=== PATIENT | female | born 1945 | race Hispanic/Latino ===

== ENCOUNTER 2017-06-30 19:06 | Observation (INO) | payer MEDICARE, OTHER ==
[2017-06-30 19:06] VITALS: BMI 32.8
--- NOTE | 2017-06-30 19:54 | ED PDOC ---
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 Pain is R ian-sternal. Consistent for the last 2 days. Sharp in nature. Localized. Associated with SOB. Rated 7/10. No history of MD or stroke. Aggravated with movement and alleviated slightly with rest Daughter was present. She shares that today, she was cutting a cucumber and accidentally punctured her middle finger. There was slight bleeding. However, she still experiences pain with some limitation in extension and flexion. PCP: Dr. Mark Polanco FamHx: No hx of CAD or DM SurgHx: none Soc: Denies smoking, alcohol, illicit drugs NKDA - Risk Factors TAD Risk Factors: Pos: Hypertension Past Medical History Vital Signs: Last Vital Signs Temp Pulse 80 06/30/17 19:25 Resp 20 06/30/17 19:25 BP 141/73 06/30/17 19:25 Pulse Ox 99 06/30/17 20:44 - Medical History PMH: Anxiety, Arthritis, Asthma, HTN, Hyperlipidemia, Osteoporosis Denies: Chronic Kidney Disease - Family History Family History: States: No Known Family Hx - Living Arrangements Living Arrangements: With Family - Immunization History Hx Tetanus Toxoid Vaccination: No Hx Influenza Vaccination: No Hx Pneumococcal Vaccination: No - Home Medications Home Medications: Ambulatory Orders Medication Instructions Recorded Amlodipine Besylate 2.5 mg PO DAILY 04/02/15 Triamterene/Hydrochlorothiazid 1 cap PO DAILY 04/02/15 [Triamterene-Hydrochlorothiazide 25 mg-37.5 mg] Albuterol HFA [Ventolin HFA 90 1 puff IH BID PRN 11/02/16 mcg/actuation (8 g)] Alendronate Sodium [Binosto] 70 mg PO QWK 11/02/16 Budesonide/Formoterol Fumarate 1 aer IH BID 11/02/16 [Symbicort] Calcium Carbonate [Caltrate 600] 600 mg PO DAILY 11/02/16 Diclofenac Sodium [Voltaren] 100 gm TP BID PRN 11/02/16 Lactulose 10 gm PO DAILY PRN 11/02/16 Multivit,Iron,Min 5/Folic Acid 1 tab PO DAILY 11/02/16 [Strovite Forte] Naproxen [Naprosyn] 500 mg PO DAILY PRN 11/02/16 [place]-3 Fatty Acids/Fish Oil [Fish 1,000 mg PO BID 11/02/16 Oil 1,000 mg Capsule] Omeprazole 40 mg PO DAILY 11/02/16 - Allergies Allergies/Adverse Reactions: Allergies Allergy/AdvReac Type Severity Reaction Status Date / Time No Known Allergies Allergy Verified 04/02/15 07:39 DAVE Risk Score for UA/NSTEMI - DAVE Risk Score Age > 64: YES 3 or more CAD Risk Factors: NO Known CAD (Stenosis greater than 50%): NO Aspirin use in past 7 days: NO Severe Angina: YES EKG ST changes greater than 0.5mm: NO Positive Cardiac Marker: NO DAVE Score: 2 Risk %: 8% Curb-65 Severity Score - CURB-65 Severity Score Respiratory Rate greater than/equal to 30: No Systolic BP <90 or Diastolic BP less than/equal 60mmHg: No Age >64: Yes Curb-65 Score: 1 Percentage 30-day mortality: 2.7% Review of Systems Cardiovascular: Positive for: Chest Pain (R sternal) Respiratory: Positive for: Shortness of Breath Neurological: Negative for: Altered Mental Status Psych: Positive for: Anxiety Physical Exam - Reviewed Vital Signs Reviewed: Yes - Physical Exam Appears: Positive for: Uncomfortable Skin: Positive for: Warm, Dry Eye Exam: Positive for: Normal appearance, EOMI. Negative for: Nystagmus Cardiovascular/Chest: Positive for: Regular Rate, Rhythm, Other (R sternal tenderness upon palpation) Respiratory: Positive for: Normal Breath Sounds Gastrointestinal/Abdominal: Positive for: Normal Exam, Bowel Sounds, Soft Extremity: Positive for: Capillary Refill (<2 sec), Swelling (L middle digit), Other (L middle digit with healing puncture wound. No surrounding erythema. limited ROM 2/2 pain. No ulcerations or purulent discharge.) Neurologic/Psych: Positive for: Alert, Oriented - Laboratory Results Result Diagrams: 06/30/17 19:57 06/30/17 19:57 - ECG O2 Sat by Pulse Oximetry: 99 - Progress ED Course And Treament: Troponin negative x1. Observation overnight for serial troponin. Disposition - Clinical Impression Clinical Impression: Chest pain - Patient ED Disposition Is Patient to be Admitted: Yes - Disposition Disposition Time: 20:45 Condition: FAIR Forms: [employer] (Mongolian)
[2017-06-30 20:12] LABS: BASO # 0.1 K/uL (0.0-0.2); BASO % 0.5 % (0.0-2.0); EOS # 0.4 K/uL (0.0-0.7); EOS % 3.9 % (0.0-4.0); HEMATOCRIT 36.1 % (34.0-47.0); LYMPH # 2.3 K/uL (1.0-4.3); MEAN CELL VOLUME 86.5 fl (81.0-99.0); MEAN CORPUSCULAR HEMOGLOBIN 28.6 pg (27.0-31.0); MEAN PLATELET VOLUME 8.5 fl (7.2-11.7); NEUT # 7.7 K/uL (1.8-7.0); NEUT % 66.6 % (50.0-75.0); NRBC % 0.1 % (0.0-0.0); RED CELL DISTRIBUTION WIDTH 14.1 % (11.5-14.5); WHITE BLOOD COUNT 11.6 K/uL (4.8-10.8)
[2017-06-30 20:15] LABS: BLOOD UREA NITROGEN 21 mg/dl (7-17); CALCIUM 9.5 mg/dL (8.4-10.2); CARBON DIOXIDE 29 mmol/L (22-30); CHLORIDE 105 mmol/L (98-107); GFR AFRICAN-AMERICAN > 60; GLUCOSE,RANDOM 102 mg/dL (65-105); POTASSIUM 3.5 MMOL/L (3.6-5.0); SODIUM 141 mmol/l (132-148)
[2017-06-30 21:07] LABS: PARTIAL THROMBOPLASTIN TIME 33.2 Seconds (25.6-37.1)
[2017-06-30] MEDS ORDERED: Oxycodone/Acetaminophen 5/325 mg Tab PO PRN (21:55)
[2017-06-30] MEDS ORDERED: Aspirin 325 mg EC Tablets PO ONE (22:32)
[2017-07-01 00:24] VITALS: RESP 18
[2017-07-01 08:15] VITALS: BP 119/68; PULSE 65; TEMP 98.2; O2SAT 96
[2017-07-01] MEDS ORDERED: Pantoprazole 40 mg EC Tab PO SCH (09:00)
[2017-07-01] MEDS ORDERED: Enoxaparin 40 mg Syringe SC SCH (09:00)
--- NOTE | 2017-07-01 09:51 | CARD ---
APPROVED REPORT EKG Measurement Heart [id number] <Conclusion> Normal sinus rhythm Moderate voltage criteria for LVH, may be normal variant Inferior infarct, age undetermined Abnormal ECG
--- NOTE | 2017-07-01 09:52 | RAD ---
PROCEDURE: CHEST RADIOGRAPH, 1 VIEW HISTORY: chest pain COMPARISON: None available. FINDINGS: LUNGS: Clear. PLEURA: No pneumothorax or pleural fluid seen. CARDIOVASCULAR: Normal. OSSEOUS STRUCTURES: Degenerative changes. VISUALIZED UPPER ABDOMEN: Normal. OTHER FINDINGS: None. IMPRESSION: No active disease.
--- NOTE | 2017-07-01 10:03 | CP.PCM.DIS ---
Provider - Provider Date of Admission: 06/30/17 21:41 Attending physician: Mariposa Reid MD Time Spent in preparation of Discharge (in minutes): 30 Diagnosis - Discharge Diagnosis (1) Chest pain Status: Acute Hospital Course - Lab Results Lab Results: Most Recent Lab Values WBC 11.6 K/uL (4.8-10.8) H 06/30/17 19:57 RBC 4.17 Mil/uL (3.80-5.20) 06/30/17 19:57 Hgb 11.9 g/dL (12.0-16.0) L 06/30/17 19:57 Hct 36.1 % (34.0-47.0) 06/30/17 19:57 MCV 86.5 fl (81.0-99.0) 06/30/17 19:57 MCH 28.6 pg (27.0-31.0) 06/30/17 19:57 MCHC 33.0 g/dL (33.0-37.0) 06/30/17 19:57 RDW 14.1 % (11.5-14.5) 06/30/17 19:57 Plt Count 253 K/uL (130-400) 06/30/17 19:57 MPV 8.5 fl (7.2-11.7) 06/30/17 19:57 Neut % (Auto) 66.6 % (50.0-75.0) 06/30/17 19:57 Lymph % (Auto) 20.0 % (20.0-40.0) 06/30/17 19:57 [place] % (Auto) 9.0 % (0.0-10.0) 06/30/17 19:57 Eos % (Auto) 3.9 % (0.0-4.0) 06/30/17 19:57 Baso % (Auto) 0.5 % (0.0-2.0) 06/30/17 19:57 Neut # 7.7 K/uL (1.8-7.0) H 06/30/17 19:57 Lymph # 2.3 K/uL (1.0-4.3) 06/30/17 19:57 [place] # 1.0 K/uL (0.0-0.8) H 06/30/17 19:57 Eos # 0.4 K/uL (0.0-0.7) 06/30/17 19:57 Baso # 0.1 K/uL (0.0-0.2) 06/30/17 19:57 PT 10.4 Seconds (9.8-13.1) 06/30/17 19:57 INR 0.9 (0.9-1.2) 06/30/17 19:57 APTT 33.2 Seconds (25.6-37.1) 06/30/17 19:57 Sodium 141 mmol/l (132-148) 06/30/17 19:57 Potassium 3.5 MMOL/L (3.6-5.0) L 06/30/17 19:57 Chloride 105 mmol/L (98-107) 06/30/17 19:57 Carbon Dioxide 29 mmol/L (22-30) 06/30/17 19:57 Anion Gap 11 (10-20) 06/30/17 19:57 BUN 21 mg/dl (7-17) H 06/30/17 19:57 Creatinine 0.7 mg/dl (0.7-1.2) 06/30/17 19:57 Est GFR ( Amer) > 60 06/30/17 19:57 Est GFR (Non-Af Amer) > 60 06/30/17 19:57 Random Glucose 102 mg/dL (65-105) 06/30/17 19:57 Calcium 9.5 mg/dL (8.4-10.2) 06/30/17 19:57 Troponin I < 0.0120 ng/mL (0.00-0.120) 07/01/17 06:16 - Hospital Course Hospital Course: 71 YEAR OLD FEMALE WITH PMH HTN WAS ADMITTED FOR CHEST PAIN. CARDIAC ENZYMES WERE TRENDED, NEGATIVE X2. EKG NO ACUTE ISCHEMIA OR INFARCT. CARDIOLOGY WAS CONSULTED THIS MORNING. THIS MORNING PATIENT STATED SHE NO LONGER WISHES TO STAY. RISKS OF LEAVING AMA, AND BENEFITS OF STAYING EXPLAINED. PATIENT DECIDED TO AMA. ABX GIVEN FOR FINGER. Discharge Exam - Head Exam Additional comments: DECLINED EXAM Discharge Plan - Follow Up Plan Condition: FAIR Disposition: AGAINST MEDICAL ADVICE Additional Instructions: return to ER if condition returns or worsens. follow up with PCP and CARDIOLOGY RENETTA
[2017-07-01 13:47] LABS: HEMATOCRIT 34.5 % (34.0-47.0); MEAN CELL VOLUME 87.3 fl (81.0-99.0); MEAN CORPUSCULAR HEMOGLOBIN 28.2 pg (27.0-31.0); MEAN CORPUSCULAR HGB CONC 32.4 g/dL (33.0-37.0); WHITE BLOOD COUNT 8.4 K/uL (4.8-10.8)
[2017-07-01 14:36] LABS: THYROID STIMULATING HORMONE 2.08 mIU/ML (0.46-4.68)
[2017-07-01 14:39] LABS: ALB/GLOB RATIO 1.1 (1.0-2.1); ALKALINE PHOSPHATASE 83 U/L (38-126); ALT/SGPT 25 U/L (9-52); AST/SGOT 23 U/L (14-36); BILIRUBIN,TOTAL 0.4 mg/dl (0.2-1.3); BLOOD UREA NITROGEN 15 mg/dl (7-17); CALCIUM 9.1 mg/dL (8.4-10.2); CARBON DIOXIDE 27 mmol/L (22-30); CHLORIDE 107 mmol/L (98-107); GFR AFRICAN-AMERICAN > 60; GLUCOSE,RANDOM 76 mg/dL (65-105); POTASSIUM 3.7 MMOL/L (3.6-5.0); SODIUM 142 mmol/l (132-148); TOTAL PROTEIN 6.5 G/DL (6.3-8.2)
== END 2017-07-01 11:00 | disposition home or self-care (01) ==
LOC: H.ER 19:06 → H.ERHOLD 21:41 → H.TEL 23:52
PROVIDERS: ADMIT Internal Medicine Medical Oncology; ATTEND Internal Medicine Medical Oncology
DX: R07.89 Other chest pain (principal); E78.5 Hyperlipidemia, unspecified; I10 Essential (primary) hypertension; J45.909 Unspecified asthma, uncomplicated; M81.0 Age-related osteoporosis without current pathological fracture; Z79.899 Other long term (current) drug therapy
CPT/HCPCS: 36415; 71010; 80048; 80053; 84436; 84443; 84484; 85025; 85027; 85610; 85730; 93005; 99285; G0378

== ENCOUNTER 2018-03-13 07:51 | Emergency (ER) | payer MEDICARE, OTHER ==
[2018-03-13 07:55] VITALS: BMI 42.2
[2018-03-13 07:56] VITALS: RESP 18; O2SAT 98
--- NOTE | 2018-03-13 08:51 | ED PDOC ---
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 Patient states she was seen by her PMD Dr. Varela as well as an ENT and was informed to come to the ER for further evaluation. Patient currently complains of a mild headache and states the dizziness worsens when she stands up from a sitting position. She denies any weakness, numbness, photophobia, or head injury. She also denies any fever, chills, nausea, vomiting, diarrhea, chest pain, shortness of breath or abdominal pain. Patient offers no other complaints. PMD: Dr. Varela Past Medical History Reviewed: Historical Data, Nursing Documentation, Vital Signs Vital Signs: Last Vital Signs Temp 97.6 F 03/13/18 12:54 Pulse 70 03/13/18 12:54 Resp 18 03/13/18 12:54 BP 132/78 03/13/18 12:54 Pulse Ox 98 03/13/18 14:16 - Medical History PMH: Anxiety, Arthritis, Asthma, HTN, Hypercholesterolemia, Hyperlipidemia, Osteoporosis Denies: HIV, Chronic Kidney Disease - Surgical History Surgical History: No Surg Hx - Family History Family History: States: No Known Family Hx - Social History Current smoker - smoking cessation education provided: No Alcohol: None Drugs: Denies - Immunization History Hx Tetanus Toxoid Vaccination: No Hx Influenza Vaccination: No Hx Pneumococcal Vaccination: No - Home Medications Home Medications: Ambulatory Orders Medication Instructions Recorded Albuterol HFA [Ventolin HFA 90 1 puff IH DAILY 01/09/18 mcg/actuation (8 g)] Alendronate [Fosamax] 70 mg PO QWK 01/09/18 Ammonium Lactate 12% [Lac-Hydrin 1 appl TP DAILY 01/09/18 12% Cream (140 g)] Atorvastatin [Lipitor] 10 mg PO DAILY 01/09/18 Betamethasone Dip 0.05% [Diprolene] 1 ml TP DAILY 01/09/18 Escitalopram [Lexapro] 5 mg PO DAILY 01/09/18 Icosapent Ethyl [Vascepa] 1 gm PO DAILY 01/09/18 Levocetirizine Dihydrochloride 5 mg PO DAILY 01/09/18 [Levocetirizine Dihydrochloride] Meclizine HCl 12.5 mg PO DAILY 01/09/18 Metoprolol Succinate 25 mg PO DAILY 01/09/18 Olopatadine HCl 2.5 ml OP DAILY 01/09/18 Ropinirole HCl 0.25 mg PO DAILY 01/09/18 amLODIPine [Norvasc] 2.5 mg PO DAILY 01/09/18 Meclizine [Antivert] 12.5 mg PO Q6H PRN #6 tab 03/13/18 - Allergies Allergies/Adverse Reactions: Allergies Allergy/AdvReac Type Severity Reaction Status Date / Time No Known Allergies Allergy Verified 03/13/18 08:09 Review of Systems ROS Statement: Except As Marked, All Systems Reviewed And Found Negative Constitutional: Negative for: Fever, Chills Eyes: Negative for: Vision Change Cardiovascular: Negative for: Chest Pain Respiratory: Negative for: Shortness of Breath Gastrointestinal: Negative for: Nausea, Vomiting, Abdominal Pain Neurological: Positive for: Headache, Dizziness. Negative for: Weakness, Numbness Physical Exam - Reviewed Nursing Documentation Reviewed: Yes Vital Signs Reviewed: Yes - Physical Exam Appears: Positive for: Non-toxic, No Acute Distress Head Exam: Positive for: ATRAUMATIC, NORMAL INSPECTION, NORMOCEPHALIC Skin: Positive for: Normal Color, Warm, DRY Eye Exam: Positive for: Normal appearance, EOMI, PERRL. Negative for: Nystagmus ENT: Positive for: Normal ENT Inspection Neck: Positive for: Normal, Painless ROM, Supple Cardiovascular/Chest: Positive for: Regular Rate, Rhythm Respiratory: Positive for: CNT, Normal Breath Sounds Gastrointestinal/Abdominal: Positive for: Normal Exam, Soft Back: Positive for: Normal Inspection Extremity: Positive for: Normal ROM. 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 Negative for: Motor/Sensory Deficits, Aphasia, Facial Droop - Laboratory Results Result Diagrams: 03/13/18 08:54 03/13/18 08:54 - ECG O2 Sat by Pulse Oximetry: 98 (RA) Pulse Ox Interpretation: Normal Medical Decision Making Medical Decision Making: Impression: Dizziness rule out intracranial process Plan: * Labs * MRI Brain w/ and w/o contrast Time: 1100 MRI Brain w/ and w/o contrast FINDINGS: HEMORRHAGE: None DWI: No evidence of an acute or early subacute infarction. BRAIN PARENCHYMA: No mass,mass effect or edema. There is generalized cerebral atrophy present. There are multiple bilateral left side greater than right side periventricular and deep white matter and subcortical FLAIR hyperintensities nonenhancing present. These hyperintensities are nonspecific -however Lyme's disease, demyelinization. Gliosis and vasculitides noninflammatory are also considerations but believed less likely. . ENHANCEMENT: No abnormal intracranial enhancement. VENTRICLES: Unremarkable. No hydrocephalus. CRANIUM: Unremarkable. ORBITS: Grossly unremarkable. PARANASAL SINUSES/MASTOIDS: Clear VASCULAR SYSTEM: Skull base flow voids intact. OTHER FINDINGS: None . IMPRESSION: No hemorrhage or mass effect. Bilateral nonspecific white matter changes as referenced above more numerous on the left side in the right side. In this age group, microvascular ischemic disease is believe most likely. No acute infarcts seen. Time: [address] Varela who was made aware of MRI results. He recommends giving patient a dose of Meclizine and to be discharged home with follow up with him tomorrow. pt feels well, stable gait, alert and patent airway. relayed plan to pt. Scribe Attestation: Documented by Minoo Bacon, acting as a scribe for Micaela Weber MD. Provider Scribe Attestation: All medical record entries made by the Scribe were at my direction and personally dictated by me. I have reviewed the chart and agree that the record accurately reflects my personal performance of the history, physical exam, medical decision making, and the department course for this patient. I have also personally directed, reviewed, and agree with the discharge instructions and disposition. Disposition - Clinical Impression Clinical Impression: Dizziness - Patient ED Disposition Is Patient to be Admitted: No Counseled Patient/Family Regarding: Studies Performed, Diagnosis, Need For Followup - Disposition Disposition: Routine/Home Disposition Time: 12:30 Condition: IMPROVED Additional Instructions: follow up with dr varela tomorrow for reevaluation return to the ED with any worsening or concerning symptoms Prescriptions: Meclizine [Antivert] 12.5 mg PO Q6H PRN #6 tab PRN Reason: Dizziness Instructions: Vertigo (a Type of Dizziness) (DC) Forms: [employer] (Czech)
[2018-03-13 08:59] LABS: BASO # 0.1 K/uL (0.0-0.2); BASO % 0.9 % (0.0-2.0); EOS # 0.4 K/uL (0.0-0.7); EOS % 4.7 % (0.0-4.0); HEMOGLOBIN 12.1 g/dL (12.0-16.0); LYMPH # 1.6 K/uL (1.0-4.3); LYMPH % 19.4 % (20.0-40.0); MEAN CORPUSCULAR HGB CONC 33.7 g/dL (33.0-37.0); MEAN PLATELET VOLUME 8.7 fl (7.2-11.7); MONO # 0.8 K/uL (0.0-0.8); MONO % 9.5 % (0.0-10.0); NEUT # 5.2 K/uL (1.8-7.0); NEUT % 65.5 % (50.0-75.0); NRBC % 0.5 % (0.0-0.0); RBC 4.15 Mil/uL (3.80-5.20); RED CELL DISTRIBUTION WIDTH 14.3 % (11.5-14.5)
[2018-03-13 09:06] LABS: ALB/GLOB RATIO 1.1 (1.0-2.1); ALBUMIN 3.9 g/dL (3.5-5.0); ALT/SGPT 20 U/L (9-52); AST/SGOT 27 U/L (14-36); BLOOD UREA NITROGEN 27 mg/dl (7-17); CALCIUM 8.6 mg/dL (8.4-10.2); GFR NON-AFRICAN AMERICAN > 60
[2018-03-13] MEDS ORDERED: Gadodiamide 287 MG/ML VIAL (15ML) IV ONE (09:19)
--- NOTE | 2018-03-13 11:00 | MRI ---
Date of service: 03/13/2018 PROCEDURE: MRI BRAIN WITH AND WITHOUT CONTRAST HISTORY: dizziness COMPARISON: None available. TECHNIQUE: Multiplanar, multisequence MR images of the brain were obtained with and without intravenous contrast enhancement.20 cc of Omniscan was injected intravenously. FINDINGS: HEMORRHAGE: None DWI: No evidence of an acute or early subacute infarction. BRAIN PARENCHYMA: No mass,mass effect or edema. There is generalized cerebral atrophy present. There are multiple bilateral left side greater than right side periventricular and deep white matter and subcortical FLAIR hyperintensities nonenhancing present. These hyperintensities are nonspecific -however Lyme's disease, demyelinization. Gliosis and vasculitides noninflammatory are also considerations but believed less likely. . ENHANCEMENT: No abnormal intracranial enhancement. VENTRICLES: Unremarkable. No hydrocephalus. CRANIUM: Unremarkable. ORBITS: Grossly unremarkable. PARANASAL SINUSES/MASTOIDS: Clear VASCULAR SYSTEM: Skull base flow voids intact. OTHER FINDINGS: None . IMPRESSION: No hemorrhage or mass effect. Bilateral nonspecific white matter changes as referenced above more numerous on the left side in the right side. In this age group, microvascular ischemic disease is believe most likely. No acute infarcts seen.
[2018-03-13 12:55] VITALS: BP 132/78; PULSE 70; TEMP 97.6
== END 2018-03-13 12:49 | disposition home or self-care (01) ==
LOC: H.ER 07:51
DX: R42 Dizziness and giddiness (principal); E78.00 Pure hypercholesterolemia, unspecified; F41.9 Anxiety disorder, unspecified; I10 Essential (primary) hypertension; M81.0 Age-related osteoporosis without current pathological fracture
CPT/HCPCS: 70553; 80053; 82948; 85025; 99283; A9579

== ENCOUNTER 2018-07-28 16:52 | Inpatient (IN) | payer MEDICARE, OTHER ==
[2018-07-28 16:52] VITALS: BMI 42.2
[2018-07-28 18:08] LABS: BASO % 0.4 % (0.0-2.0); EOS # 0.3 K/uL (0.0-0.7); EOS % 2.6 % (0.0-4.0); HEMOGLOBIN 13.4 g/dL (12.0-16.0); LYMPH # 1.9 K/uL (1.0-4.3); LYMPH % 15.5 % (20.0-40.0); MEAN CELL VOLUME 85.7 fl (81.0-99.0); MEAN CORPUSCULAR HEMOGLOBIN 28.1 pg (27.0-31.0); MEAN CORPUSCULAR HGB CONC 32.7 g/dL (33.0-37.0); MEAN PLATELET VOLUME 9.1 fl (7.2-11.7); MONO % 8.4 % (0.0-10.0); NEUT # 8.9 K/uL (1.8-7.0); NEUT % 73.1 % (50.0-75.0); RBC 4.79 Mil/uL (3.80-5.20); WHITE BLOOD COUNT 12.1 K/uL (4.8-10.8)
[2018-07-28 18:18] LABS: ALBUMIN 4.4 g/dL (3.5-5.0); ALT/SGPT 25 U/L (9-52); AST/SGOT 38 U/L (14-36); BLOOD UREA NITROGEN 22 mg/dl (7-17); CALCIUM 9.7 mg/dL (8.4-10.2); GFR NON-AFRICAN AMERICAN 55
[2018-07-28 18:21] LABS: INR 1.1
[2018-07-28 18:24] LABS: PARTIAL THROMBOPLASTIN TIME 34.4 Seconds (25.6-37.1)
--- NOTE | 2018-07-28 19:09 | ED PDOC ---
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 However, daughter in law said she heard the fall and ran into the bathroom and found her on the ground and spent 3 minutes with her before she regained consciousness. Patient states she has vertigo, felt dizzy and unsteady and then the next thing she knows she was being woken up on the floor. She r eports pain to the right side of neck but denies headache, nausea, vomiting or other discomfort. PMD: Parth Polanco Past Medical History Reviewed: Historical Data, Nursing Documentation, Vital Signs Vital Signs: Last Vital Signs Temp 98 F 07/28/18 16:57 Pulse 81 07/28/18 16:57 Resp 18 07/28/18 16:57 BP 138/59 L 07/28/18 16:57 Pulse Ox 98 07/28/18 16:57 - Medical History PMH: Anxiety, Arthritis, Asthma, CVA (x2), HTN, Hypercholesterolemia, Hyperlipidemia, Osteoporosis Denies: HIV, Chronic Kidney Disease - Family History Family History: States: Unknown Family Hx - Immunization History Hx Tetanus Toxoid Vaccination: No Hx Influenza Vaccination: No Hx Pneumococcal Vaccination: No - Home Medications Home Medications: Ambulatory Orders Medication Instructions Recorded Albuterol HFA [Ventolin HFA 90 1 puff IH DAILY 01/09/18 mcg/actuation (8 g)] Alendronate [Fosamax] 70 mg PO QWK 01/09/18 Atorvastatin [Lipitor] 10 mg PO DAILY 01/09/18 Betamethasone Dip 0.05% [Diprolene] 1 ml TP DAILY 01/09/18 Escitalopram [Lexapro] 5 mg PO DAILY 01/09/18 Icosapent Ethyl [Vascepa] 1 gm PO DAILY 01/09/18 Levocetirizine Dihydrochloride 5 mg PO DAILY 01/09/18 RX: Ammonium Lactate 12% 1 appl TP DAILY 01/09/18 [Lac-Hydrin 12% Cream (140 g)] RX: Meclizine HCl 12.5 mg PO DAILY 01/09/18 RX: Metoprolol Succinate 25 mg PO DAILY 01/09/18 RX: Olopatadine HCl 2.5 ml OP DAILY 01/09/18 RX: Ropinirole HCl 0.25 mg PO DAILY 01/09/18 amLODIPine [Norvasc] 2.5 mg PO DAILY 01/09/18 RX: Meclizine [Antivert] 12.5 mg PO Q6H PRN #6 tab 03/13/18 - Allergies Allergies/Adverse Reactions: Allergies Allergy/AdvReac Type Severity Reaction Status Date / Time No Known Allergies Allergy Verified 07/28/18 16:57 Review of Systems ROS Statement: Except As Marked, All Systems Reviewed And Found Negative Musculoskeletal: Positive for: Neck Pain Physical Exam - Reviewed Nursing Documentation Reviewed: Yes Vital Signs Reviewed: Yes - Physical Exam Appears: Positive for: Non-toxic, No Acute Distress Skin: Positive for: Normal Color, Warm, Dry Eye Exam: Positive for: Normal appearance, EOMI, PERRL ENT: Positive for: Pharynx Is (clear), TM Is/Are (unremarkable), Other (abrasion just posterior to the right ear, no active bleeding) Cardiovascular/Chest: Positive for: Regular Rate, Rhythm Respiratory: Positive for: Normal Breath Sounds. Negative for: Respiratory Distress Gastrointestinal/Abdominal: Positive for: Normal Exam, Soft. Negative for: Tenderness Back: Positive for: Other (no tenderness to palpation of spine) Extremity: Positive for: Normal ROM (upper and lower). Negative for: Pedal Edema, Deformity Neurologic/Psych: Positive for: Alert, Oriented (x3) - Laboratory Results Result Diagrams: 07/28/18 18:00 07/28/18 18:00 Lab Results: PT 12.0 Seconds (9.8-13.1) 07/28/18 18:00 INR 1.1 07/28/18 18:00 APTT 34.4 Seconds (25.6-37.1) 07/28/18 18:00 Troponin I < 0.0120 ng/mL (0.00-0.120) 07/28/18 18:00 Total Bilirubin 0.5 mg/dl (0.2-1.3) 07/28/18 18:00 AST 38 U/L (14-36) H D 07/28/18 18:00 ALT 25 U/L (9-52) 07/28/18 18:00 Alkaline Phosphatase 101 U/L (38-126) 07/28/18 18:00 Total Protein 8.6 G/DL (6.3-8.2) H 07/28/18 18:00 Albumin 4.4 g/dL (3.5-5.0) 07/28/18 18:00 Globulin 4.2 gm/dL (2.2-3.9) H 07/28/18 18:00 Albumin/Globulin Ratio 1.0 (1.0-2.1) 07/28/18 18:00 - ECG O2 Sat by Pulse Oximetry: 98 (RA) Pulse Ox Interpretation: Normal Medical Decision Making Medical Decision Making: Time: 1735 Workup for syncopal episode whit head trauma, Plan: --ct brain --labs with cardiac enzymes --ekg --reassess Time: 1899 --Labs at this time are unremarkable, EKG unremarkable. Brain CT shows no acute injury. Mostly likely admission for syncope. Time: 1929 --Case discussed with Dr. Polanco, patient to be admitted observation/telemetry. Scribe Attestation: Documented by Raquel Krishnan, acting as a scribe for Elena Connors MD. Provider Scribe Attestation: All medical record entries made by the Scribe were at my direction and personally dictated by me. I have reviewed the chart and agree that the record accurately reflects my personal performance of the history, physical exam, medical decision making, and the department course for this patient. I have also personally directed, reviewed, and agree with the discharge instructions and disposition. Disposition - Clinical Impression Clinical Impression: Syncope and collapse - Patient ED Disposition Is Patient to be Admitted: Yes - Disposition Disposition Time: 19:30 Condition: FAIR
[2018-07-28] MEDS ORDERED: Morphine 4 MG/ML VIAL IVP STA (19:13)
[2018-07-28] MEDS ORDERED: Morphine 4 MG/ML VIAL ONE (19:47)
--- NOTE | 2018-07-29 08:59 | CT ---
Date of service: 07/28/2018 PROCEDURE: CT HEAD WITHOUT CONTRAST. HISTORY: fall with LOC, 2 previous stroke COMPARISON: None available. TECHNIQUE: Axial computed tomography images were obtained through the head/brain without intravenous contrast. Radiation dose: Total exam DLP = 839.16 mGy-cm. This CT exam was performed using one or more of the following dose reduction techniques: Automated exposure control, adjustment of the mA and/or kV according to patient size, and/or use of iterative reconstruction technique. FINDINGS: HEMORRHAGE: No intracranial hemorrhage. BRAIN: No mass effect or edema. Mild diffuse age-appropriate cerebral atrophy. Patchy periventricular and deep white matter lucency consistent with microvascular white matter ischemic change. No evidence of acute infarct. VENTRICLES: Unremarkable. No hydrocephalus. CALVARIUM: Unremarkable. PARANASAL SINUSES: Unremarkable as visualized. No significant inflammatory changes. MASTOID AIR CELLS: Unremarkable as visualized. No inflammatory changes. OTHER FINDINGS: None. IMPRESSION: No intracranial mass, hemorrhage or evidence of acute infarct. Chronic white matter ischemic change and mild atrophy. The preliminary findings for this examination were reported by [facility] at 7:24 p.m. on 07/28/2018. There is concurrence of this report with the preliminary findings.
[2018-07-29] MEDS ORDERED: Patient's Own Med (Icosapent Ethyl [Vascepa] 1 GM) PO SCH (09:00)
[2018-07-29] MEDS ORDERED: ROPINIROLE HCL 0.25 MG PO SCH (09:00)
[2018-07-29] MEDS ORDERED: LEVOCETIRIZINE DIHYDROCHLORIDE 5 MG PO SCH (09:00)
[2018-07-29] MEDS: Ammonium Lactate 12% Cream (140 g) TOP SCH (09:07)
[2018-07-29] MEDS: Metoprolol Succinate 25 mg XL Tab PO SCH (09:15)
[2018-07-29] MEDS: Albuterol HFA 90 mcg/actuation (8 g) IH SCH (09:16)
--- NOTE | 2018-07-29 09:19 | CARD ---
APPROVED REPORT Date of service: 07/28/2018 EKG Measurement Heart [id number] <Conclusion> Normal sinus rhythm Moderate voltage criteria for LVH, may be normal variant Borderline ECG
[2018-07-29] MEDS ORDERED: Tdap Vaccine 0.5 ml Vial (10-64 yrs) IM ONE (09:26)
--- NOTE | 2018-07-29 09:28 | CT ---
Date of service: 07/28/2018 PROCEDURE: CT Cervical Spine without contrast HISTORY: fall with LOC, neck pain COMPARISON: None available. TECHNIQUE: Axial computed tomography images were obtained of the cervical spine without the use of intravenous contrast. Coronal and sagittal reformatted images were created and reviewed. Radiation dose: Total exam DLP = 431.0 mGy-cm. This CT exam was performed using one or more of the following dose reduction techniques: Automated exposure control, adjustment of the mA and/or kV according to patient size, and/or use of iterative reconstruction technique. FINDINGS: VERTEBRAE: Vertebral bodies are maintained in height. The atlantoaxial articulation and odontoid process are intact. Normal alignment is maintained. There is straightening of the normal lordotic curvature of the cervical spine indicating possible muscular spasm. DISCS/SPINAL CANAL/NEURAL FORAMINA: There is marked narrowing of the C3-4, C4-5 and C5-6 intervertebral disc spaces consistent with degenerative disc disease. The remaining intervertebral disc spaces are maintained in height. PARASPINAL SOFT TISSUES: No prevertebral soft tissue swelling. OTHER FINDINGS: Nodular calcifications in left lobe of thyroid. Recommend correlation with thyroid ultrasound for possible multinodular thyroid. IMPRESSION: No fracture/dislocation. Possible muscular spasm. Multilevel degenerative disc disease. Nodular calcifications in left lobe of thyroid for which ultrasound thyroid examination is advised.
[2018-07-29] MEDS: Olopatadine 0.1% Opht SOLN OU SCH (09:37)
--- NOTE | 2018-07-29 10:23 | CP.PCM.CON ---
History of Present Illness - History of Present Illness History of Present Illness: Neurology Consultation Note: Consult requested by Dr. Polanco The patient is a 73-year-old woman, who I have seen as an outpatient in the past for vertigo/syncope, with a past medical history of anxiety, arthritis, asthma, previous stroke, HTN, HLD, osteoporosis, who developed vertigo at home with balance difficulty, dizziness, lightheadedness, followed by a syncopal episode with LOC for about 3 minutes. Non-contrast CT scan of the head did not show any concerning findings. She states that she has had 3 previous syncopal episodes with palpitations, shortness of breath and light-headedness. Review of Systems - Constitutional Constitutional: As Per HPI - EENT Eyes: absent: As Per HPI, Blind Spots, Blurred Vision, Change in Vision, Decreased Night Vision, Diplopia, Discharge, Dry Eye, Exophthalmos, Floaters, Irritation, Itchy Eyes, Loss of Peripheral Vision, Pain, Photophobia, Requires Corrective Lenses, Sees Flashes, Spots in Vision, Tunnel Vision, Other Visual Disturbances, Loss of Vision, Other Ears: absent: As Per HPI, Decreased Hearing, Ear Discharge, Ear Pain, Tinnitus, Abnormal Hearing, Disequilibrium, Dizziness, Other Nose/Mouth/Throat: absent: As Per HPI, Epistaxis, Nasal Congestion, Nasal Discharge, Nasal Obstruction, Nasal Trauma, Nose Pain, Post Nasal Drip, Sinus Pain, Sinus Pressure, Bleeding Gums, Change in Voice, Dental Pain, Dry Mouth, Dysphagia, Halitosis, Hoarsness, Lip Swelling, Mouth Lesions, Mouth Pain, Odynophagia, Sore Throat, Throat Swelling, Tongue Swelling, Facial Pain, Neck Pain, Neck Mass, Other - Cardiovascular Cardiovascular: As Per HPI, Syncope - Respiratory Respiratory: absent: As Per HPI, Cough, Dyspnea, Hemoptysis, Dyspnea on Exertion, Wheezing, Snoring, Stridor, Pain on Inspiration, Chest Congestion, Excessive Mucous Production, Change in Mucous Color, Pain with Coughing, Other - Gastrointestinal Gastrointestinal: absent: As Per HPI, Abdominal Pain, Belching, Bloating, Change in Bowel Habits, Change in Stool Character, Coffee Ground Emesis, Constipation, Cramping, Diarrhea, Dyspepsia, Dysphagia, Early Satiety, Excessive Flatus, Fecal Incontinence, Heartburn, Hematemesis, Hematochezia, Loose Stools, Melena, Nausea, Odynophagia, Temesmus, Vomiting, Other - Genitourinary Genitourinary: absent: As Per HPI, Change in Urinary Stream, Difficulty Urinating, Dysuria, Flank Pain, Hematuria, Pyuria, Nocturia, Urinary Incontinence, Urinary Frequency, Urinary Hesitance, Urinary Urgency, Voiding Freq/Small Amts, Freq UTI, Hx Renal/Bladder Calculi, Hx /Renal Surgery, Bladder Distension, Other - Musculoskeletal Musculoskeletal: absent: As Per HPI, Abnormal Gait, Arthralgias, Atrophy, Back Pain, Deformity, Joint Swelling, Limited Range of Motion, Loss of Height, Muscle Cramps, Muscle Weakness, Myalgias, Neck Pain, Numbness, Radiating Pain into Limb, Stiffness, Tingling, Other - Integumentary Integumentary: absent: As Per HPI, Acne, Alopecia, Bleeding Lesions, Change in Hair, Change in Nails, Change in Pigmentation, Changing Lesions, Dry Skin, Erythema, Furuncle, Hirsutism, Lesions, New Lesions, Non-Healing Lesions, Photosensitivity, Pruritus, Rash, Skin Pain, Skin Ulcer, Sores, Striae, Swelling, Unusual Bruising, Wounds, Jaundice, Other - Neurological Neurological: As Per HPI - Psychiatric Psychiatric: absent: As Per HPI, Abnormal Sleep Pattern, Anhedonia, Anxiety, Auditory Hallucinations, Behavioral Changes, Change in Appetite, Change in Libido, Confusion, Depression, Difficulty Concentrating, Hallucinations, Homicidal Ideation, Hopelessness, Irritability, Memory Loss, Mood Swings, Panic Attacks, Paranoia, Suicidal Ideation, Visual Hallucinations, Tactile Hallucinations, Other - Endocrine Endocrine: absent: As Per HPI, Change in Body Appearance, Change in Libido, Cold Intolorance, Deepening of Voice, Excessive Sweating, Fatigue, Flushing, Heat Intolorance, Increase in Ring/Shoe/Hat Size, Palpitations, Polydipsia, Polyphagia, Polyuria, Other Past Patient History - Past Medical History & Family History Past Medical History?: Yes - Past Social History Smoking Status: Never Smoked - CARDIAC Hx Hypercholesterolemia: Yes Hx Hypertension: Yes - PULMONARY Hx Asthma: Yes - NEUROLOGICAL Hx Neurological Disorder: Yes Hx Dizziness: Yes - HEENT Hx HEENT Problems: Yes Hx Cataracts: Yes (BILATERAL) - RENAL Hx Chronic Kidney Disease: No - ENDOCRINE/METABOLIC Hx Endocrine Disorders: No - HEMATOLOGICAL/ONCOLOGICAL Hx Human Immunodeficiency Virus (HIV): No - INTEGUMENTARY Hx Dermatological Problems: No - MUSCULOSKELETAL/RHEUMATOLOGICAL Hx Falls: Yes - GASTROINTESTINAL Hx Gastrointestinal Disorders: Yes Hx Gastroesophageal Reflux: Yes HX Swallowing Problems: Yes - GENITOURINARY/GYNECOLOGICAL Hx Genitourinary Disorders: No - PSYCHIATRIC Hx Substance Use: No - SURGICAL HISTORY Hx Surgeries: Yes Hx Cataract Extraction: Yes (BILATERAL) Other/Comment: HX OF VEIN STRIPPING AND LIGATION - ANESTHESIA Hx Anesthesia: Yes Hx Anesthesia Reactions: No Hx Malignant Hyperthermia: No Meds Allergies/Adverse Reactions: Allergies Allergy/AdvReac Type Severity Reaction Status Date / Time No Known Allergies Allergy Verified 07/28/18 16:57 - Medications Medications: Current Medications Albuterol (Ventolin Hfa 90 Mcg/Actuation (8 G)) 1 puff IH DAILY [facility] Last Admin: 07/29/18 09:16 Dose: 1 puff Alendronate Sodium (Fosamax) 70 mg PO QWK [facility] Amlodipine Besylate (Norvasc) 2.5 mg PO DAILY [facility] Last Admin: 07/29/18 09:08 Dose: 2.5 mg Atorvastatin Calcium (Lipitor) 10 mg PO DAILY [facility] Last Admin: 07/29/18 09:08 Dose: 10 mg Escitalopram Oxalate (Lexapro) 5 mg PO DAILY [facility] Last Admin: 07/29/18 09:08 Dose: 5 mg Home Med (Icosapent Ethyl [Vascepa]) 1 gm PO DAILY [facility] Home Med (Ropinirole Hcl [Ropinirole Hcl]) 0.25 mg PO DAILY [facility] Lactic Acid (Lac-Hydrin 12% Cream (140 G)) 1 ea TOP DAILY [facility] Last Admin: 07/29/18 09:07 Dose: 1 applic Loratadine (Claritin) 10 mg PO DAILY [facility] Last Admin: 07/29/18 09:07 Dose: 10 mg Meclizine HCl (Antivert) 12.5 mg PO Q6H PRN PRN Reason: Dizziness Metoprolol Succinate (Toprol Xl) 25 mg PO DAILY [facility] Last Admin: 07/29/18 09:15 Dose: 25 mg Olopatadine HCl (Patanol 0.1% Opht Soln) 1 drop OU DAILY [facility] Last Admin: 07/29/18 09:37 Dose: 1 drop Physical Exam - Constitutional Appears: Well - Head Exam Head Exam: ATRAUMATIC, NORMAL INSPECTION, NORMOCEPHALIC - Eye Exam Eye Exam: EOMI, Normal appearance, PERRL Pupil Exam: NORMAL ACCOMODATION, PERRL - ENT Exam ENT Exam: Mucous Membranes Moist, Normal Exam - Neck Exam Neck exam: Positive for: Normal Inspection - Respiratory Exam Respiratory Exam: Clear to Auscultation Bilateral, NORMAL BREATHING PATTERN - Cardiovascular Exam Cardiovascular Exam: REGULAR RHYTHM, +S1, +S2 - GI/Abdominal Exam GI & Abdominal Exam: Normal Bowel Sounds, Soft. absent: Tenderness - Rectal Exam Rectal Exam: Deferred - Extremities Exam Extremities exam: Positive for: normal inspection - Back Exam Back exam: NORMAL INSPECTION - Neurological Exam Neurological exam: Alert, CN II-XII Intact, Normal Gait, Oriented x3, Reflexes Normal Additional comments: No nystagmus, no ataxia. - Psychiatric Exam Psychiatric exam: Normal Affect, Normal Mood - Skin Skin Exam: Dry, Intact, Normal Color, Warm Results - Vital Signs Recent Vital Signs: Last Vital Signs Temp 98.1 F 07/29/18 07:52 Pulse 102 H 07/29/18 09:15 Resp 20 07/29/18 07:52 BP 121/77 07/29/18 09:15 Pulse Ox 95 07/29/18 07:52 - Labs Result Diagrams: 07/28/18 18:00 07/28/18 18:00 Labs: Laboratory Results - last 24 hr 07/28/18 07/28/18 07/28/18 17:12 18:00 18:00 WBC 12.1 H D RBC 4.79 Hgb 13.4 Hct 41.0 MCV 85.7 MCH 28.1 MCHC 32.7 L RDW 14.0 Plt Count 303 MPV 9.1 Neut % (Auto) 73.1 Lymph % (Auto) 15.5 L Menard % (Auto) 8.4 Eos % (Auto) 2.6 Baso % (Auto) 0.4 Neut # (Auto) 8.9 H Lymph # (Auto) 1.9 Menard # (Auto) 1.0 H Eos # (Auto) 0.3 Baso # (Auto) 0.0 PT INR APTT Sodium 139 Potassium 3.8 Chloride 94 L Carbon Dioxide 31 H Anion Gap 18 BUN 22 H Creatinine 1.0 Est GFR ( Amer) > 60 Est GFR (Non-Af Amer) 55 POC Glucose (mg/dL) 126 H Random Glucose 109 H Calcium 9.7 Total Bilirubin 0.5 AST 38 H D ALT 25 Alkaline Phosphatase 101 Troponin I < 0.0120 Total Protein 8.6 H Albumin 4.4 Globulin 4.2 H Albumin/Globulin Ratio 1.0 Blood Type Antibody Screen BBK History Checked 07/28/18 07/28/18 18:00 18:00 WBC RBC Hgb Hct MCV MCH MCHC RDW Plt Count MPV Neut % (Auto) Lymph % (Auto) Menard % (Auto) Eos % (Auto) Baso % (Auto) Neut # (Auto) Lymph # (Auto) Menard # (Auto) Eos # (Auto) Baso # (Auto) PT 12.0 INR 1.1 APTT 34.4 Sodium Potassium Chloride Carbon Dioxide Anion Gap BUN Creatinine Est GFR ( Amer) Est GFR (Non-Af Amer) POC Glucose (mg/dL) Random Glucose Calcium Total Bilirubin AST ALT Alkaline Phosphatase Troponin I Total Protein Albumin Globulin Albumin/Globulin Ratio Blood Type O POSITIVE Antibody Screen Negative BBK History Checked No verified bt Assessment & Plan (1) Syncope and collapse Assessment and Plan: Based on the patient's history of previous ischemic strokes, complaints of vertigo and gait instability prior to syncopal episode, the patient may have vertebro-basilar insufficiency. Seizure is less likely since there is no report of seizure-like activity. I recommend obtaining CTA of the head/neck for further evaluation. Continue cardiac work-up for neurocardiogenic sources or cardiac dysrrhythmia. Fluids with NS at 100 mL/hr. PT/OT eval. At this point, since these episodes have been happening and we still do not have a clear cause, I would recommend insertion of a Linq device for syncope of unknown cause/origin. Thank you for this consultation. Status: Acute
--- NOTE | 2018-07-29 10:35 | RAD ---
Date of service: 07/28/2018 HISTORY: possible admission COMPARISON: Chest radiograph dated 06/30/2017. FINDINGS: LUNGS: No active pulmonary disease. PLEURA: No significant pleural effusion identified, no pneumothorax apparent. CARDIOVASCULAR: Aortic atherosclerotic calcifications. Cardiomediastinal silhouette stably enlarged OSSEOUS STRUCTURES: Unchanged. VISUALIZED UPPER ABDOMEN: Normal. OTHER FINDINGS: None. IMPRESSION: No active disease.
--- NOTE | 2018-07-29 11:30 | RAD ---
Date of service: 07/29/2018 PROCEDURE: Radiographs of the Lumbar Spine. HISTORY: pain sp fall COMPARISON: No prior. FINDINGS: BONES: Vertebral bodies maintained in height. There is grade 1 anterolisthesis at L4-5. There is no evidence of spondylolysis. Normal alignment is maintained elsewhere. The transverse processes and posterior elements appear intact. DISC SPACES: Narrowing of the L4-5 disc space. Consistent with degenerative disc disease. The remaining intervertebral disc spaces are preserved in height. OTHER FINDINGS: None. IMPRESSION: Degenerative disc disease at L4-5 with grade 1 anterolisthesis at L4-5, likely degenerative in origin. No evidence of fracture.
[2018-07-29] MEDS ORDERED: Iodixanol 320 MG/ML 100 ML BOTTLE IV ONE (12:34)
[2018-07-29] MEDS ORDERED: Sodium Chloride 0.9% 50 ML IV ONE (12:35)
--- NOTE | 2018-07-29 16:32 | CT ---
Date of service: 07/29/2018 PROCEDURE: CT Angiography of the Brain and Neck. HISTORY: syncope, vertigo COMPARISON: None available. TECHNIQUE: CT angiography of the head and neck was performed following intravenous contrast administration. Coronal and sagittal maximum intensity projection reformatted images were generated. Contrast Dose: Visipaque 320, 90 cc Radiation dose: Total exam DLP = 492.22 mGy-cm. This CT exam was performed using one or more of the following dose reduction techniques: Automated exposure control, adjustment of the mA and/or kV according to patient size, and/or use of iterative reconstruction technique. FINDINGS: INTERNAL CEREBRAL ARTERIES: Note is made of minimally calcified atherosclerosis of the bilateral cavernous internal carotid artery segments without stenosis. The skull base, petrous, and supraclinoid segments are bilaterally widely patent. The skull base, petrous, and supraclinoid segments are bilaterally widely patent. ANTERIOR CEREBRAL ARTERIES: Unremarkable. A1 and A2 segments are widely patent. Smaller distal branches unremarkable, as visualized. MIDDLE CEREBRAL ARTERIES: Unremarkable. M1 and M2 segments are widely patent. Perisylvian branches grossly symmetric. POSTERIOR CIRCULATION: Basilar Artery: Unremarkable. Distal Vertebral Arteries: Unremarkable. Posterior Cerebral Arteries: Unremarkable. Posterior Inferior Cerebellar Arteries: Unremarkable. NECK CTA: There is a conjoint origin of the left common and right brachiocephalic arteries of the aortic arch. Common Carotid arteries: The bilateral common carotid appear widely patent from their origins to their bifurcations with no significant stenosis appreciated. No evidence to suggest common carotid artery dissection. Internal Carotid arteries: No significant stenosis is appreciated throughout the cervical internal carotid artery segments bilaterally and there is no evidence of dissection either. There is moderate bilateral ectasis at the proximal and mid segments. External Carotid arteries: Appear unremarkable bilaterally. Vertebral arteries: The bilateral vertebral arteries appear normal in caliber from their origins to their distal cervical segments. No significant stenosis or definite pattern of dissection. ANEURYSM/ VASCULAR MALFORMATIONS: None. OTHER FINDINGS: None. IMPRESSION: CT Angiography of the Brain is remarkable only for minimal atherosclerosis of the cavernous internal artery segments bilaterally without stenosis. No large vessel occlusion or severe stenosis identified. Conjoint origin left common carotid and right brachiocephalic arteries off the aortic arch. No occlusion or significant stenosis appreciate in the cervical segments of the bilateral common or internal carotid arteries or bilateral vertebral arteries.
--- NOTE | 2018-07-30 00:34 | HP ---
HISTORY OF PRESENT ILLNESS: The patient is a 73-year-old Irish female with history of multiple medical problems, was brought to emergency room after passing out at home. The patient stated that after she micturated she stood up and she felt dizzy after which she fell to the ground. Daughter who lives with the patient at home heard the bang and came to the patient where found her semiconscious. Ambulance was called and the patient was brought to emergency room for further evaluation. The patient has had trauma to the right parietal area. Other review of systems is negative. ALLERGIES: NO KNOWN ALLERGY. MEDICATIONS: As per MAR, reviewed and ordered. SOCIAL HISTORY: No history of smoking, EtOH or substance abuse. FAMILY HISTORY: Not contributory. PHYSICAL EXAMINATION: GENERAL: The patient is in bed, not in any cardiopulmonary distress. VITAL SIGNS: Blood pressure 121/74, temperature 98.1, respiratory rate 17, and pulse 65. HEENT: Pupils equal, reactive to light. Normal-appearing mucosa of the conjunctivae, oropharynx and nasal membrane mucosa. NECK: Supple. No JVD. No carotid bruit. No lymph node. No thyromegaly. CHEST AND LUNGS: Bilateral symmetrical expansion. Good air exchange. No rales, no rhonchi. CARDIOVASCULAR SYSTEM: PMI not localized. S1, S2. No additional sounds. ABDOMEN: Normoactive bowel sounds. No tenderness. No organomegaly. No masses. EXTREMITIES: No cyanosis, no clubbing, no edema. DIRECTOR OF USER EXPERIENCE: Alert, awake, oriented x2. No neurological deficit could be appreciated. ASSESSMENT: 1. Likely post-micturition syncope. 2. Hypertension. 3. Osteoarthritis. 4. Back pain. 5. History of benign positional vertigo. PLAN: We will do neuro check every 4 hours, neurology and cardiology consultation, and resume the patient's home medications. We will check blood pressure lying down and standing. Brennen Polanco MD
[2018-07-30] MEDS: Ammonium Lactate 12% Cream (140 g) TOP SCH (08:24)
[2018-07-30] MEDS: Olopatadine 0.1% Opht SOLN OU SCH ×2 (08:25→12:33)
[2018-07-30] MEDS: Metoprolol Succinate 25 mg XL Tab PO SCH (08:28)
[2018-07-30] MEDS: Albuterol HFA 90 mcg/actuation (8 g) IH SCH (08:29)
--- NOTE | 2018-07-30 11:43 | CP.PCM.CON ---
History of Present Illness - History of Present Illness History of Present Illness: THE PATIENT IS A 73 YEAR OLD FEMALE WHO HAD POST MICTURATION DIZZINESS AND FELL TO THE FLOOR AND HAD A SYNCOPAL OR NEAR SYNCOPAL EPISODE FOR A FEW MINUTES AND WAS FOUND BY HER DAUGHTER AND BROUGHT TO THE ER AND ADMITTED. SHE HAS A HISTORY OF VERTIGO, SYNCOPE IN THE PAST, AN OLD CVA, HYPERTENSION AND HYPERLIPIDEMIA. I WAS ASKED TO SEE HER BY DR ORTIZ. SHE DENIES ANY CAD HISTORY OR PRIOR OH. SHE DENIES ANY SUSTAINED PALPITATIONS SUCH BUT SEEMS TO DESCRIBE AN OCCASIONAL SKIPPED BEAT. Past Patient History - Past Medical History & Family History Past Medical History?: Yes - Past Social History Smoking Status: Never Smoked - CARDIAC Hx Hypercholesterolemia: Yes Hx Hypertension: Yes - PULMONARY Hx Asthma: Yes - NEUROLOGICAL Hx Neurological Disorder: Yes Hx Dizziness: Yes - HEENT Hx HEENT Problems: Yes Hx Cataracts: Yes (BILATERAL) - RENAL Hx Chronic Kidney Disease: No - ENDOCRINE/METABOLIC Hx Endocrine Disorders: No - HEMATOLOGICAL/ONCOLOGICAL Hx Human Immunodeficiency Virus (HIV): No - INTEGUMENTARY Hx Dermatological Problems: No - MUSCULOSKELETAL/RHEUMATOLOGICAL Hx Arthritis: Yes Hx Osteoporosis: Yes - GASTROINTESTINAL Hx Gastrointestinal Disorders: Yes Hx Gastroesophageal Reflux: Yes HX Swallowing Problems: Yes - GENITOURINARY/GYNECOLOGICAL Hx Genitourinary Disorders: No - PSYCHIATRIC Hx Anxiety: Yes - SURGICAL HISTORY Hx Surgeries: Yes Hx Cataract Extraction: Yes (BILATERAL) Other/Comment: HX OF VEIN STRIPPING AND LIGATION - ANESTHESIA Hx Anesthesia: Yes Hx Anesthesia Reactions: No Hx Malignant Hyperthermia: No Meds Allergies/Adverse Reactions: Allergies Allergy/AdvReac Type Severity Reaction Status Date / Time No Known Allergies Allergy Verified 07/28/18 16:57 - Medications Medications: Current Medications Albuterol (Ventolin Hfa 90 Mcg/Actuation (8 G)) 1 puff IH DAILY [facility] Last Admin: 07/30/18 08:29 Dose: 1 puff Alendronate Sodium (Fosamax) 70 mg PO QWK [facility] Atorvastatin Calcium (Lipitor) 10 mg PO DAILY [facility] Last Admin: 07/30/18 08:25 Dose: 10 mg Escitalopram Oxalate (Lexapro) 5 mg PO DAILY [facility] Last Admin: 07/30/18 08:24 Dose: 5 mg Lactic Acid (Lac-Hydrin 12% Cream (140 G)) 1 ea TOP DAILY [facility] Last Admin: 07/30/18 08:24 Dose: 1 applic Loratadine (Claritin) 10 mg PO DAILY [facility] Last Admin: 07/30/18 08:23 Dose: 10 mg Meclizine HCl (Antivert) 12.5 mg PO Q6H PRN PRN Reason: Dizziness Metoprolol Succinate (Toprol Xl) 25 mg PO DAILY [facility] Last Admin: 07/30/18 08:28 Dose: 25 mg Olopatadine HCl (Patanol 0.1% Opht Soln) 1 drop OU DAILY [facility] Last Admin: 07/30/18 08:25 Dose: Not Given Physical Exam - Respiratory Exam Respiratory Exam: Clear to Auscultation Bilateral - Cardiovascular Exam Cardiovascular Exam: REGULAR RHYTHM, +S1, +S2 - Extremities Exam Additional comments: NO LE EDEMA VV PRESENT, NO CALF PAIN - Additional Findings Additional findings: 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 VERTIGO? STABLE CARDIAC STSTUS AT THE PRESENT TIME. SHE DOES NOT DESCRIBE SUSTAINED PALPITATIONS TO ME HYPERTENSION HYPERLIPIDEMIA Plan: THE PATIENT WAS ADMITTED TO ON TEMETRY SHE IS ON MECLIZINE, ATORVASTATIN AND METOPROLOL ECHOCARDIOGRAM ORDERED
--- NOTE | 2018-07-30 12:06 | CP.PCM.PN ---
Subjective - Date & Time of Evaluation Date of Evaluation: 07/30/18 Time of Evaluation: 12:04 - Subjective Subjective: Neuro Follow-Up Note: Mrs. Dukes was evaluated this morning at bedside. She admits to feeling good today. Was evaluated by cardiology this morning. She currently denies any h/a, dizziness, visual changes, chest pain, palpitations, sob, cough, n/v/d. Objective - Vital Signs/Intake and Output Vital Signs (last 24 hours): Temp Pulse Resp BP Pulse Ox 98.1 F 62 18 106/59 L 98 07/30/18 08:04 07/30/18 09:00 07/30/18 08:04 07/30/18 08:28 07/30/18 08:04 - Medications Medications: Current Medications Albuterol (Ventolin Hfa 90 Mcg/Actuation (8 G)) 1 puff IH DAILY [facility] Last Admin: 07/30/18 08:29 Dose: 1 puff Alendronate Sodium (Fosamax) 70 mg PO QWK [facility] Atorvastatin Calcium (Lipitor) 10 mg PO DAILY [facility] Last Admin: 07/30/18 08:25 Dose: 10 mg Escitalopram Oxalate (Lexapro) 5 mg PO DAILY [facility] Last Admin: 07/30/18 08:24 Dose: 5 mg Lactic Acid (Lac-Hydrin 12% Cream (140 G)) 1 ea TOP DAILY [facility] Last Admin: 07/30/18 08:24 Dose: 1 applic Loratadine (Claritin) 10 mg PO DAILY [facility] Last Admin: 07/30/18 08:23 Dose: 10 mg Meclizine HCl (Antivert) 12.5 mg PO Q6H PRN PRN Reason: Dizziness Metoprolol Succinate (Toprol Xl) 25 mg PO DAILY [facility] Last Admin: 07/30/18 08:28 Dose: 25 mg Olopatadine HCl (Patanol 0.1% Opht Soln) 1 drop OU DAILY [facility] Last Admin: 07/30/18 08:25 Dose: Not Given - Labs Labs: 07/28/18 18:00 07/28/18 18:00 PT 12.0 Seconds (9.8-13.1) 07/28/18 18:00 INR 1.1 07/28/18 18:00 APTT 34.4 Seconds (25.6-37.1) 07/28/18 18:00 - Constitutional Appears: Well, Non-toxic, No Acute Distress - Head Exam Head Exam: ATRAUMATIC, NORMAL INSPECTION, NORMOCEPHALIC - Eye Exam Eye Exam: EOMI, Normal appearance, PERRL. absent: Nystagmus Pupil Exam: NORMAL ACCOMODATION, PERRL - ENT Exam ENT Exam: Mucous Membranes Moist, Normal Exam - Neck Exam Neck Exam: Full ROM, Normal Inspection - Respiratory Exam Respiratory Exam: NORMAL BREATHING PATTERN - Extremities Exam Extremities Exam: Full ROM, Normal Inspection. absent: Calf Tenderness, Pedal Edema - Back Exam Back Exam: Full ROM, NORMAL INSPECTION - Neurological Exam Neurological Exam: Alert, Awake, CN II-XII Intact, Oriented x3, Reflexes Normal Neuro motor strength exam: Left Upper Extremity: 5, Right Upper Extremity: 5, Left Lower Extremity: 5, Right Lower Extremity: 5 Additional comments: Speech clear,fluid Strength equal Sensation intact No focal neuro deficits - Psychiatric Exam Psychiatric exam: Normal Affect, Normal Mood - Skin Skin Exam: Normal Color Assessment and Plan (1) Syncope and collapse Assessment & Plan: Imaging reviewed: -CTA Head and Neck (07/29/18): CT Angiography of the Brain is remarkable only for minimal atherosclerosis of the cavernous internal artery segments bilaterally without stenosis. No large vessel occlusion or severe stenosis identified. Conjoint origin left common carotid and right brachiocephalic arteries off the aortic arch. No occlusion or significant stenosis appreciate in the cervical segments of the bilateral common or internal carotid arteries or bilateral vertebral arteries. -CT Head (): No intracranial mass, hemorrhage or evidence of acute infarct. Chronic white matter ischemic change and mild atrophy Mrs. Dukes was found to be orthostatic this morning. I discussed neuro plan and CTA findings with Dr. Polanco during rounds. Pt already rec'd IVF yesterday; as of today he is holding her Amlodipine and will re-evaluate her BP. Cardiology consult evaluated the pt as well and recommends outpatient f/u; we still recommend a LINQ device considering the frequency of her near-syncope and syncope if cardio is in agreement. -ECHO ordered by cardio--will f/u with results once completed. -Continue PT/OT -Continue statin -Notify neuro team of any acute changes in pt's condition. Case discussed with Dr. Davis Status: Acute
[2018-07-30 13:48] LABS: HEMOGLOBIN 13.3 g/dL (12.0-16.0); MEAN CELL VOLUME 85.9 fl (81.0-99.0); MEAN CORPUSCULAR HEMOGLOBIN 28.6 pg (27.0-31.0); MEAN CORPUSCULAR HGB CONC 33.3 g/dL (33.0-37.0); RBC 4.64 Mil/uL (3.80-5.20); RED CELL DISTRIBUTION WIDTH 13.9 % (11.5-14.5); WHITE BLOOD COUNT 7.9 K/uL (4.8-10.8)
[2018-07-30 13:52] LABS: BLOOD UREA NITROGEN 15 mg/dl (7-17); CALCIUM 9.6 mg/dL (8.4-10.2); GFR NON-AFRICAN AMERICAN > 60
--- NOTE | 2018-07-30 16:37 | US ---
Date of service: 07/30/2018 HISTORY: abdominal pain COMPARISON: None. TECHNIQUE: Sonographic evaluation of the abdomen. FINDINGS: LIVER: Measures 12.8 cm. Normal echogenicity of the liver parenchyma. No mass. No intrahepatic bile duct dilatation. GALLBLADDER: Cholelithiasis with borderline gallbladder wall thickening. Sonographic Wilson's sign was not elicited. COMMON BILE DUCT: Measures 4 mm. No stones. No dilatation. PANCREAS: Unremarkable as visualized. No mass. No ductal dilatation. RIGHT KIDNEY: Measures 11.4 x 3.9 x 3.8cm. Normal echogenicity. No calculus, mass, or hydronephrosis. LEFT KIDNEY: Measures 11.9 x 4.1 x 3.9cm. Normal echogenicity. No calculus, mass, or hydronephrosis. SPLEEN: Normal in size and contour. No mass. AORTA: No aneurysmal dilatation. IVC: Unremarkable. OTHER FINDINGS: None. IMPRESSION: Cholelithiasis with borderline gallbladder wall thickening. Findings are equivocal for acute cholecystitis. If there is concern for acute cholecystitis, nuclear medicine hepatobiliary scan is recommended to further evaluate patency of the cystic duct.
--- NOTE | 2018-07-30 19:55 | CARD ---
APPROVED REPORT Date of service: 07/30/2018 EXAM: Two-dimensional and M-mode echocardiogram with Doppler and color Doppler. Other Information Quality : GoodRhythm : NSR INDICATION Syncope 2D DIMENSIONS IVSd1.27 (0.7-1.1cm)LVDd4.09 (3.9-5.9cm) LVOT Diameter2.39 (1.8-2.4cm)PWd1.13 (0.7-1.1cm) IVSs1.29 (0.8-1.2cm)LVDs2.93 (2.5-4.0cm) FS (%) 28.5 %PWs1.58 (0.8-1.2cm) M-Mode DIMENSIONS Left Atrium (MM)3.71 (2.5-4.0cm)IVSd0.85 (0.7-1.1cm) Aortic Root2.97 (2.2-3.7cm)LVDd5.44 (4.0-5.6cm) Aortic Cusp Exc.1.62 (1.5-2.0cm)PWd0.79 (0.7-1.1cm) IVSs1.09 cmFS (%) 38 % LVDs3.38 (2.0-3.8cm)PWs1.21 cm Aortic Valve AoV Peak Grvrtzub823.4cm/sAoV VTI35.0cmAO Peak GR.13mmHg LVOT Peak Rhooflba604.7cm/sLVOT VTI21.09cmAO Mean GR.6mmHg KANDACE (VMAX)1.61bb0IVQ (VTI)1.30cm2 Mitral Valve MV E Xqsazsnr17.7cm/sMV DECEL JYCC391wlZP A Cgsrpihi87.3cm/s MV WZA78ovC/A ratio0.8MVA (PHT)3.49cm2 TDI Lateral E' Peak V12.30cm/sMedial E' Peak V7.25cm/sE/Lateral E'5.6 E/Medial E'9.5 Tricuspid Valve TR Peak Ccckspby167ul/sRAP CQCEKNSA62yrEmTI Peak Gr.19mmHg BPND95awDc LEFT VENTRICLE The left ventricle is normal size. There is normal left ventricular wall thickness. The left ventricular systolic function is normal. The estimated ejection fraction is 55-60% No regional wall motion abnormalities noted.. Transmitral Doppler flow pattern is Grade I-abnormal relaxation pattern. No left ventricle thrombus noted on this study. There is no ventricular septal defect visualized. There is no left ventricular aneurysm. There is no mass noted in the left ventricle. RIGHT VENTRICLE The right ventricle is normal size. There is normal right ventricular wall thickness. The right ventricular systolic function is normal. ATRIA The left atrium size is normal. The right atrium size is normal. The interatrial septum is intact with no evidence for an atrial septal defect. AORTIC VALVE The aortic valve is normal in structure. Mild aortic regurgitation is present. There is no aortic valvular stenosis. There is no aortic valvular vegetation. MITRAL VALVE The mitral valve is normal in structure. There is no evidence of mitral valve prolapse. There is no mitral valve stenosis. There is trace to mild mitral valve regurgitation noted. TRICUSPID VALVE The tricuspid valve is normal in structure. There is trace tricuspid valve regurgitation noted. RVSP is calculated at 25 mm Hg. There is no tricuspid valve prolapse or vegetation. There is no tricuspid valve stenosis. PULMONIC VALVE The pulmonary valve is normal in structure. There is no pulmonic valvular regurgitation. There is no pulmonic valvular stenosis. GREAT VESSELS The aortic root is normal in size. The ascending aorta is normal in size. The pulmonary artery is normal. The IVC is normal in size and collapses >50% with inspiration. PERICARDIAL EFFUSION There is no pericardial effusion. There is no pleural effusion. <Conclusion> The estimated ejection fraction is 55-60% Transmitral Doppler flow pattern is Grade I-abnormal relaxation pattern. The left atrium size is normal. Mild aortic regurgitation is present. There is trace tricuspid valve regurgitation noted. RVSP is calculated at 25 mm Hg.
--- NOTE | 2018-07-31 04:41 | PN ---
DATE: 07/30/2018 SUBJECTIVE: The patient is seen today on 07/30/2018. She is having some abdominal pain. PHYSICAL EXAMINATION: VITAL SIGNS: Blood pressure is systolic 121 lying down and 117 standing. The patient's temperature 98.1, respiratory rate 20, and pulse 66. HEENT: Pupils equal, reactive to light. Normal-appearing mucosa of the conjunctivae, oropharynx, and nasal membrane mucosa. NECK: Supple. No JVD. No carotid bruit. No lymph node. No thyromegaly. CHEST AND LUNGS: Bilateral symmetrical expansion. Good air exchange. No rales. No rhonchi. CARDIOVASCULAR SYSTEM: PMI not localized. S1, S2. No additional sounds. ABDOMEN: Normoactive bowel sounds. The patient has epigastric tenderness. No organomegaly. No masses. EXTREMITIES: No cyanosis, no clubbing, and no edema. CENTRAL NERVOUS SYSTEM: Alert, awake, oriented x2. No neurological deficit could be appreciated. ASSESSMENT: 1. Syncope, likely situational syncope post-micturition. 2. Abdominal pain, rule out gallbladder disease. 3. Hypertension with orthostatic changes. PLAN: We will stop amlodipine. Continue metoprolol. We will order abdominal ultrasound. Brennen Polanco MD
[2018-07-31] MEDS: Olopatadine 0.1% Opht SOLN OU SCH (08:52)
[2018-07-31] MEDS: Albuterol HFA 90 mcg/actuation (8 g) IH SCH (08:52)
[2018-07-31] MEDS: Ammonium Lactate 12% Cream (140 g) TOP SCH (08:59)
[2018-07-31] MEDS: Metoprolol Succinate 25 mg XL Tab PO SCH (09:01)
--- NOTE | 2018-07-31 10:35 | CP.PCM.PN ---
Subjective - Date & Time of Evaluation Date of Evaluation: 07/31/18 Time of Evaluation: 09:15 - Subjective Subjective: NO CHEST PAIN OR SOB NO FURTHER NEAR SYNCOPE OR SYNCOPE Objective - Vital Signs/Intake and Output Vital Signs (last 24 hours): Temp Pulse Resp BP Pulse Ox 98.2 F 68 20 102/66 96 07/31/18 08:12 07/31/18 09:01 07/31/18 08:12 07/31/18 09:01 07/31/18 08:12 - Medications Medications: Current Medications Acetaminophen (Tylenol 325mg Tab) 650 mg PO Q6 PRN PRN Reason: Pain, Mild (1-3) Last Admin: 07/30/18 22:12 Dose: 650 mg Albuterol (Ventolin Hfa 90 Mcg/Actuation (8 G)) 1 puff IH DAILY [facility] Last Admin: 07/31/18 08:52 Dose: 1 puff Alendronate Sodium (Fosamax) 70 mg PO QWK [facility] Atorvastatin Calcium (Lipitor) 10 mg PO DAILY [facility] Last Admin: 07/31/18 08:53 Dose: Not Given Escitalopram Oxalate (Lexapro) 5 mg PO DAILY [facility] Last Admin: 07/31/18 08:53 Dose: Not Given Lactic Acid (Lac-Hydrin 12% Cream (140 G)) 1 ea TOP DAILY [facility] Last Admin: 07/31/18 08:59 Dose: 1 applic Lactulose (Enulose) 20 gm PO Q6H PRN PRN Reason: Constipation Loratadine (Claritin) 10 mg PO DAILY [facility] Last Admin: 07/31/18 08:50 Dose: Not Given Meclizine HCl (Antivert) 12.5 mg PO Q6H PRN PRN Reason: Dizziness Metoprolol Succinate (Toprol Xl) 25 mg PO DAILY [facility] Last Admin: 07/31/18 09:01 Dose: Not Given Olopatadine HCl (Patanol 0.1% Opht Soln) 1 drop OU DAILY [facility] Last Admin: 07/31/18 08:52 Dose: 1 drop - Labs Labs: 07/30/18 13:20 07/30/18 13:20 PT 12.0 Seconds (9.8-13.1) 07/28/18 18:00 INR 1.1 07/28/18 18:00 APTT 34.4 Seconds (25.6-37.1) 07/28/18 18:00 - Respiratory Exam Respiratory Exam: Clear to Ausculation Bilateral - Cardiovascular Exam Cardiovascular Exam: REGULAR RHYTHM, +S1, +S2 - Extremities Exam Additional comments: NO LE EDEMA - Additional Findings 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
--- NOTE | 2018-07-31 14:09 | CP.PCM.PN ---
Subjective - Date & Time of Evaluation Date of Evaluation: 07/31/18 Time of Evaluation: 14:08 - Subjective Subjective: Neuro Follow-Up Note: Mrs. Dukes was evaluated this afternoon at bedside. She admits to feeling good today; eager to go home. She currently denies any h/a, dizziness, visual changes, chest pain, palpitations, sob, cough, n/v/d. Objective - Vital Signs/Intake and Output Vital Signs (last 24 hours): Temp Pulse Resp BP Pulse Ox 97.8 F 64 20 114/73 98 07/31/18 12:06 07/31/18 12:06 07/31/18 12:06 07/31/18 12:06 07/31/18 12:06 - Medications Medications: Current Medications Acetaminophen (Tylenol 325mg Tab) 650 mg PO Q6 PRN PRN Reason: Pain, Mild (1-3) Last Admin: 07/30/18 22:12 Dose: 650 mg Albuterol (Ventolin Hfa 90 Mcg/Actuation (8 G)) 1 puff IH DAILY [facility] Last Admin: 07/31/18 08:52 Dose: 1 puff Alendronate Sodium (Fosamax) 70 mg PO QWK [facility] Atorvastatin Calcium (Lipitor) 10 mg PO DAILY [facility] Last Admin: 07/31/18 08:53 Dose: Not Given Escitalopram Oxalate (Lexapro) 5 mg PO DAILY [facility] Last Admin: 07/31/18 08:53 Dose: Not Given Lactic Acid (Lac-Hydrin 12% Cream (140 G)) 1 ea TOP DAILY [facility] Last Admin: 07/31/18 08:59 Dose: 1 applic Lactulose (Enulose) 20 gm PO Q6H PRN PRN Reason: Constipation Last Admin: 07/31/18 12:56 Dose: 20 gm Loratadine (Claritin) 10 mg PO DAILY [facility] Last Admin: 07/31/18 08:50 Dose: Not Given Meclizine HCl (Antivert) 12.5 mg PO Q6H PRN PRN Reason: Dizziness Metoprolol Succinate (Toprol Xl) 25 mg PO DAILY [facility] Last Admin: 07/31/18 09:01 Dose: Not Given Olopatadine HCl (Patanol 0.1% Opht Soln) 1 drop OU DAILY [facility] Last Admin: 07/31/18 08:52 Dose: 1 drop - Labs Labs: 07/30/18 13:20 07/30/18 13:20 PT 12.0 Seconds (9.8-13.1) 07/28/18 18:00 INR 1.1 07/28/18 18:00 APTT 34.4 Seconds (25.6-37.1) 07/28/18 18:00 - Constitutional Appears: Well, Non-toxic, No Acute Distress - Head Exam Head Exam: ATRAUMATIC, NORMAL INSPECTION, NORMOCEPHALIC - Eye Exam Eye Exam: EOMI, Normal appearance, PERRL Pupil Exam: NORMAL ACCOMODATION, PERRL - ENT Exam ENT Exam: Mucous Membranes Moist, Normal Exam - Neck Exam Neck Exam: Full ROM, Normal Inspection - Respiratory Exam Respiratory Exam: NORMAL BREATHING PATTERN - GI/Abdominal Exam GI & Abdominal Exam: Soft - Extremities Exam Extremities Exam: Full ROM. absent: Calf Tenderness, Pedal Edema - Back Exam Back Exam: Full ROM, NORMAL INSPECTION - Neurological Exam Neurological Exam: Alert, Awake, CN II-XII Intact, Oriented x3, Reflexes Normal Neuro motor strength exam: Left Upper Extremity: 5, Right Upper Extremity: 5, Left Lower Extremity: 5, Right Lower Extremity: 5 Additional comments: Speech clear,fluid Strength equal Sensation intact No focal neuro deficits - Psychiatric Exam Psychiatric exam: Normal Affect, Normal Mood - Skin Skin Exam: Normal Color Assessment and Plan (1) Syncope and collapse Assessment & Plan: Imaging reviewed: -CTA Head and Neck (07/29/18): CT Angiography of the Brain is remarkable only for minimal atherosclerosis of the cavernous internal artery segments bilaterally without stenosis. No large vessel occlusion or severe stenosis identified. Conjoint origin left common carotid and right brachiocephalic arteries off the aortic arch. No occlusion or significant stenosis appreciate in the cervical segments of the bilateral common or internal carotid arteries or bilateral vertebral arteries. -CT Head (): No intracranial mass, hemorrhage or evidence of acute infarct. Chronic white matter ischemic change and mild atrophy -ECHO: EF 55-60%; no LV thrombus. -Follow up with cardiology as outpatient -Since pt has had recurrent syncopal episodes we still recommend LINQ; may be done as outpatient with cardio. -Continue PT/OT -Continue statin while in hospital and upon d/c. -Notify neuro team of any acute changes in pt's condition. Case discussed with Dr. Davis Status: Acute
--- NOTE | 2018-07-31 18:17 | NM ---
Date of service: 07/31/2018 PROCEDURE: Nuclear Medicine Hepatobiliary Scan HISTORY: r/o cholecystitis COMPARISON: Comparison is made with the previous ultrasound of the abdomen dated 07/30/2018 TECHNIQUE: 5.27 mCi of technetium 99m Mebrofenin was administered intravenously. Planar images of the abdomen were obtained at 5 min intervals to 60 mins. Delayed images were also obtained. FINDINGS: LIVER: Timely and homogenous uptake. COMMON BILE DUCT: identified at 10 mins. GALLBLADDER: identified at 15 mins. SMALL BOWEL: Identified at 10 mins. IMPRESSION: No scintigraphic evidence of acute cholecystitis. The cystic duct is patent.
--- NOTE | 2018-07-31 23:07 | PN ---
DATE: 07/31/2018 SUBJECTIVE: She is not in any cardiopulmonary distress, was complaining of lower extremity pain. The patient's abdominal pain is intermittent and the abdominal ultrasound showed cholelithiasis. PHYSICAL EXAMINATION: VITAL SIGNS: Blood pressure is 114/73, temperature 97.8, respiratory rate 20 and pulse, 64. HEENT: Pupils equal, reactive to light. Normal-appearing mucosa of the conjunctivae, oropharynx and nasal membrane mucosa. NECK: Supple. No JVD. No carotid bruit. No lymph node. No thyromegaly. CHEST AND LUNGS: Bilateral symmetrical expansion. Good air exchange. No rales, no rhonchi. CARDIOVASCULAR: PMI not localized. S1, S2. No additional sounds. ABDOMEN: Normoactive bowel sounds. No tenderness. No organomegaly. No masses. EXTREMITIES: No cyanosis, no clubbing, no edema. CENTRAL NERVOUS SYSTEM: Alert, awake, oriented x2. No neurological deficit could be appreciated. ASSESSMENT: 1. Syncope, likely post-micturition. 2. Cholelithiasis. 3. Hypertension. 4. Bilateral osteoarthritis of the knee and ankle. PLAN: We will do HIDA scan. Continue current medications and management, physical therapy. Brennen Polanco MD
[2018-08-01] MEDS: Ammonium Lactate 12% Cream (140 g) TOP SCH (09:48)
[2018-08-01] MEDS: Metoprolol Succinate 25 mg XL Tab PO SCH (09:49)
[2018-08-01] MEDS: Olopatadine 0.1% Opht SOLN OU SCH (09:49)
[2018-08-01] MEDS: Albuterol HFA 90 mcg/actuation (8 g) IH SCH (09:50)
--- NOTE | 2018-08-01 10:55 | CP.PCM.PN ---
Subjective - Date & Time of Evaluation Date of Evaluation: 08/01/18 Time of Evaluation: 08:45 - Subjective Subjective: NO CHEST PAIN OR SOB FEELS BETTER Objective - Vital Signs/Intake and Output Vital Signs (last 24 hours): Temp Pulse Resp BP Pulse Ox 97.9 F 65 20 99/67 L 94 L 08/01/18 08:25 08/01/18 09:49 08/01/18 08:25 08/01/18 09:49 08/01/18 08:25 - Medications Medications: Current Medications Acetaminophen (Tylenol 325mg Tab) 650 mg PO Q6 PRN PRN Reason: Pain, Mild (1-3) Last Admin: 07/31/18 20:57 Dose: 650 mg Albuterol (Ventolin Hfa 90 Mcg/Actuation (8 G)) 1 puff IH DAILY [facility] Last Admin: 08/01/18 09:50 Dose: 1 puff Alendronate Sodium (Fosamax) 70 mg PO QWK [facility] Atorvastatin Calcium (Lipitor) 10 mg PO DAILY [facility] Last Admin: 08/01/18 09:48 Dose: 10 mg Escitalopram Oxalate (Lexapro) 5 mg PO DAILY [facility] Last Admin: 08/01/18 09:48 Dose: 5 mg Lactic Acid (Lac-Hydrin 12% Cream (140 G)) 1 ea TOP DAILY [facility] Last Admin: 08/01/18 09:48 Dose: 1 applic Lactulose (Enulose) 20 gm PO Q6H PRN PRN Reason: Constipation Last Admin: 08/01/18 09:48 Dose: 20 gm Lidocaine HCl (Xylocaine 2%) 1 applic TOP DAILY [facility] Loratadine (Claritin) 10 mg PO DAILY [facility] Last Admin: 08/01/18 09:47 Dose: 10 mg Meclizine HCl (Antivert) 12.5 mg PO Q6H PRN PRN Reason: Dizziness Metoprolol Succinate (Toprol Xl) 25 mg PO DAILY [facility] Last Admin: 08/01/18 09:49 Dose: Not Given Olopatadine HCl (Patanol 0.1% Opht Soln) 1 drop OU DAILY [facility] Last Admin: 08/01/18 09:49 Dose: 1 drop - Labs Labs: 07/30/18 13:20 07/30/18 13:20 PT 12.0 Seconds (9.8-13.1) 07/28/18 18:00 INR 1.1 07/28/18 18:00 APTT 34.4 Seconds (25.6-37.1) 07/28/18 18:00 - Respiratory Exam Respiratory Exam: Clear to Ausculation Bilateral - Cardiovascular Exam Cardiovascular Exam: REGULAR RHYTHM, +S1, +S2 - Extremities Exam Additional comments: NO LE EDEMA - Additional Findings Additional findings: ADVANCED RESEARCH PROGRAMS DIRECTOR SHOWS PATIENT HAS REMAINED IN NSR HIDA SCAN IS NEGATIVE FOR ACUTE CHOLECYSTITIS Assessment and Plan - Assessment and Plan (Free Text) Assessment: SYNCOPE/NEAR SYNCOPE WITH HISTORY OF VERTIGO AND SYNCOPE IN THE PAST HYPERTENSION HYPERLIPIDEMIA STABLE CARDIAC STATUS-REMAINS IN SINUS RHYTHM Plan: CONTINUE METOPROLOL, ATORVASTATIN AND MECLIZINE
[2018-08-01 19:52] VITALS: BP 122/78; PULSE 70; RESP 17; TEMP 98.3; O2SAT 95
[2018-08-01] MEDS ORDERED: Lidocaine 2% GEL TOP SCH (21:00)
--- NOTE | 2018-08-02 02:30 | DS ---
REASON FOR ADMISSION: This is a 73-year-old [place] female with history of multiple medical problems, who was admitted after a fall and head trauma. COURSE DURING HOSPITALIZATION: The patient was admitted to telemetry floor, and she had neurology consultation done by Dr. Davis. The patient was also found to have orthostatic blood pressure changes, and amlodipine was stopped. The patient had a cardiology consultation done by Dr. Dudley. Due to occasional abdominal pain, the patient had an abdominal ultrasound that showed cholelithiasis suspicious for cholecystitis. The patient had HIDA scan that ruled out cholecystitis, and it showed patent cystic duct. FINAL DIAGNOSES: Syncope, head trauma, hypertension, osteoarthritis, and gastroesophageal reflux disease. [facility] MD [place]
[2018-08-04] MEDS ORDERED: ALENDRONATE 70 MG TAB PO SCH (09:00)
== END 2018-08-01 20:01 | disposition home or self-care (01) | DRG 312 ==
LOC: H.ER 16:52 → H.ERHOLD 19:32 → H.TEL 22:40 → OBSVTOIN 07-30 10:50
PROVIDERS: ADMIT Internal Medicine; ATTEND Internal Medicine
PROC: 3E0234Z Introduction of Serum, Toxoid and Vaccine into Muscle, Percutaneous Approach (ICD-10-PCS; principal; 2018-07-29)
DX: R55 Syncope and collapse (principal); J45.909 Unspecified asthma, uncomplicated; E78.00 Pure hypercholesterolemia, unspecified; E78.5 Hyperlipidemia, unspecified; I10 Essential (primary) hypertension; M81.0 Age-related osteoporosis without current pathological fracture; Z86.73 Personal history of transient ischemic attack (TIA), and cerebral infarction without residual deficits; Z23 Encounter for immunization; F41.9 Anxiety disorder, unspecified; K80.20 Calculus of gallbladder without cholecystitis without obstruction; M17.0 Bilateral primary osteoarthritis of knee; M19.072 Primary osteoarthritis, left ankle and foot; M19.071 Primary osteoarthritis, right ankle and foot; K21.9 Gastro-esophageal reflux disease without esophagitis; S09.90XA Unspecified injury of head, initial encounter; W18.30XA Fall on same level, unspecified, initial encounter; M54.9 Dorsalgia, unspecified